=== PATIENT | female | born 2000 | race Two or more races ===

== ENCOUNTER 2018-09-03 17:44 | Emergency (ER) | payer OTHER ==
--- NOTE | 2018-09-03 17:47 | EDPHY ---
HPI/HX/ROS/PE/MDM Narrative: CHIEF COMPLAINT: Syncope HPI: The patient is a 18 y/o female arriving via EMS for evaluation of a syncopal episode that occurred this afternoon. She was standing in a photography dark room on campus when she began "feeling off" then "knew I was going to pass out. I saw black dots and got lightheaded." Per bystanders, she had a "slow fall" to the ground without suffering any trauma. Bystanders reported 1-2 minutes of unconsciousness to EMS. She had a normal prehospital EKG , BGL, and vitals. She is currently asymptomatic. This event felt similar to prior syncopes she had when she was 7 years old. She was evaluated for those syncopal episode with no cause identified. She is normally healthy. REVIEW OF SYSTEMS: A comprehensive 10 system review of systems is otherwise negative aside from elements mentioned in the history of present illness. PMH: Prior syncopes SOCIAL HISTORY: [employer] student. Lives in [place]. PHYSICAL EXAM: General:Patient is alert, in no acute distress. ENT:Eyes are normal to inspection. ENT inspection normal. Neck: Normal inspection. Full range of motion. Respiratory:No respiratory distress. Breath sounds normal bilaterally. Cardiovascular: Regular rate and rhythm. Strong peripheral pulses. Normal cap refill. Abdomen:The abdomen is nontender to palpation. There are no peritoneal signs. Back: Normal to inspection. No tenderness to palpation. Skin: Normal color. No rash. Warm and dry. Extremities: Normal appearance. Full range of motion. Neuro: Oriented x3. Normal motor function. Normal sensory function. ED Course: This is a healthy 18 y/o female who presents after a syncopal episode while on campus this afternoon. She had preceding symptoms that felt similar to prior episodes and denies any trauma from the event. She is currently asymptomatic. Plan for IV, labs, EKG. 1L IV NS ordered. The 12 lead EKG was interpreted by myself. Sinus rhythm. Borderline short OR interval. See hard copy and/or "tracemaster" electronic copy for interpretation. - Data Points Medications Given: Discontinued Medications Sodium Chloride (Ns) 1,000 mls @ 0 mls/hr IV EDNOW ONE; Wide Open PRN Reason: Protocol Stop: 09/03/18 17:54 Last Admin: 09/03/18 18:11 Dose: 1,000 mls General Time Seen by Provider: 09/03/18 17:44 Initial Vital Signs: Initial Vital Signs Temperature (C) 36.4 C 09/03/18 17:44 Heart Rate 75 09/03/18 17:44 Respiratory Rate 16 09/03/18 17:44 Blood Pressure 110/95 H 09/03/18 17:44 O2 Sat (%) 94 09/03/18 17:44 O2 Delivery Mode Room Air Allergies/Adverse Reactions: No Known Allergies Allergy (Verified 09/03/18 17:58) Home Medications: Medication Instructions Recorded Control 09/03/18 Claritin 09/03/18 Departure - Departure Disposition: Home, Routine, Self-Care Clinical Impression: borderline short OR interval Syncope Qualifiers: Syncope type: unspecified Qualified Code(s): R55 - Syncope and collapse Condition: Good Instructions: Syncope (ED) Additional Instructions: 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 You've been referred to Dr. Caro at [facility]. Return to the ED for any recurrent symptoms or other worsening of condition. Referrals: Chester Caro MD [Medical Doctor] - As per Instructions Report Scribed for: Elie Lopez Report Scribed by: Oriana Nelson Date of Report: 09/03/18 Time of Report: 18:14 Physician Review and Approval Statement: Portions of this note were transcribed by an ED scribe. I personally performed the history, physical exam, and medical decision making; and confirm the accuracy of the information in the transcribed note.
[2018-09-03] MEDS ORDERED: NS 1,000 ML IV ONE (17:53)
[2018-09-03 18:21] LABS: PLATELET COUNT 387 10^3/uL (150-400)
[2018-09-03 18:52] VITALS: BP 105/71
--- NOTE | 2018-09-10 21:27 | CPEKG ---
Test Reason : OPEN Blood Pressure : / mmHG Vent. Rate : 065 BPM Atrial Rate : 066 BPM P-R Int : 106 ms QRS Dur : 097 ms QT Int : 427 ms P-R-T Axes : 056 100 054 degrees QTc Int : 444 ms Sinus rhythm Short GA interval Borderline right axis deviation Confirmed by Elie Lopez ([id number]) on 09/10/2018 9:26:41 PM Referred By: Confirmed By:Elie Lopez
== END 2018-09-03 18:54 | disposition home or self-care (01) ==
DX: R55 Syncope and collapse (principal)
CPT/HCPCS: 84484-PO